=== PATIENT | female | born 1960 | race Caucasian/White ===

== ENCOUNTER → 2021-05-22 | Outpatient (CLI) | payer BC ==
[~2021-05-22] MED LIST: HYDROCODON-ACE1 EAC4 PO
[2021-05-22 12:02] LABS: HEMOGLOBIN 12.3 gm/dl (12.3-15.3); RED BLOOD COUNT 3.92 M/UL (4.00-5.10); WHITE BLOOD COUNT 6.7 K/UL (4.5-11.0)
[2021-05-22 12:22] LABS: BUN/CREATININE RATIO 15 (0-10)
== END ==
LOC: OPSV2 11:34
PROVIDERS: Orthopaedic Surgery
DX: Z01.812 Encounter for preprocedural laboratory examination (principal); S83.282A Other tear of lateral meniscus, current injury, left knee, initial encounter; S83.242A Other tear of medial meniscus, current injury, left knee, initial encounter; S83.512A Sprain of anterior cruciate ligament of left knee, initial encounter
CPT/HCPCS: 36415; 80048; 85025

== ENCOUNTER → 2021-06-01 | Day surgery (SDC) | payer BC ==
[~2021-06-01] VITALS: Ht 157.5 cm; Wt 73.0 kg
== END | disposition home or self-care (01) ==
LOC: OR 07:01
DX: S83.232A Complex tear of medial meniscus, current injury, left knee, initial encounter (principal); S83.282A Other tear of lateral meniscus, current injury, left knee, initial encounter; M17.12 Unilateral primary osteoarthritis, left knee; Z87.891 Personal history of nicotine dependence; M94.262 Chondromalacia, left knee; M23.612 Other spontaneous disruption of anterior cruciate ligament of left knee; X58.XXXA Exposure to other specified factors, initial encounter
CPT/HCPCS: J0171; J0690; J1100; J1160; J1170; J1885; J2001; J2250; J2405; J2704; J3010; J7120